=== PATIENT | female | born 2000 | race Asian ===

== ENCOUNTER 2018-11-27 11:00 | Observation (INO) | payer BC, SELFPAY ==
[~2018-11-27] VITALS: Ht 160 cm; Wt 76.2 kg
== END 2018-11-27 13:30 | disposition home or self-care (01) ==
LOC: SPU 11:00
PROVIDERS: ADMIT Obstetrics & Gynecology; ATTEND Obstetrics & Gynecology
DX: O62.9 Abnormality of forces of labor, unspecified (principal); Z3A.38 38 weeks gestation of pregnancy
CPT/HCPCS: G0378

== ENCOUNTER 2018-11-29 21:15 | Inpatient (IN) | payer BC ==
[~2018-11-29] VITALS: Ht 163 cm; Wt 76.2 kg
[2018-11-29] MEDS ORDERED: LR 1,000 ML IV ONE (22:20)
[2018-11-29] MEDS ORDERED: NALBUPHINE HCL 10 MG/ML AMP IVP PRN (22:30)
[2018-11-29 23:08] LABS: BASOPHILS % (AUTO) 0.2 % (0.0-2.0); EOSINOPHILS % (AUTO) 0.6 % (0.0-4.0); HEMOGLOBIN 11.4 g/dL (12.0-16.0); LYMPHOCYTES # (AUTO) 1.4 K/uL (1.0-5.5); LYMPHOCYTES % (AUTO) 18.6 % (20.5-51.5); MEAN CORPUSCULAR HEMOGLOBIN 29 pg (27-31); MEAN CORPUSCULAR HGB CONC 33 % (32-36); MEAN CORPUSCULAR VOLUME 88 fL (79.0-98.0); MONOCYTES # (AUTO) 0.5 K/uL (0.0-1.0); MONOCYTES % (AUTO) 6.1 % (1.7-9.3); NEUTROPHILS # (AUTO) 5.7 K/uL (1.8-7.7); NEUTROPHILS % (AUTO) 74.5 % (40.0-70.0); PLATELET COUNT (AUTO) 198 K/uL (130-430); RED BLOOD CELL COUNT(AUTO) 3.99 MIL/uL (4.2-6.2); RED CELL DISTRIBUTION WIDTH 13.3 % (9.0-15.0); WHITE BLOOD COUNT (AUTO) 7.6 K/uL (4.5-11.0)
[2018-11-30] MEDS: LR 1,000 ML IV SCH ×3 (01:20→07:00)
[2018-11-30 03:15] VITALS: BP_SYST 124
[2018-11-30] MEDS ORDERED: fentaNYL CITRATE/PF 100 MCG/2 ML AMP ONE (06:17)
[2018-11-30] MEDS ORDERED: ROPIVACAINE 0.2% 100 ML ONE ×2 (06:18→15:13)
[2018-11-30] MEDS ORDERED: LR 500 ML IV ONE (08:05)
[2018-11-30] MEDS ORDERED: FENT2mCg/mL-ROPIVA0.2%/NS EPID 150 ML EP SCH (08:15)
[2018-11-30] MEDS ORDERED: OXYTOCIN/0.9 % SODIUM CHLORIDE 1,000 ML IV ONE ×3 (09:01→17:44)
[2018-11-30] MEDS ORDERED: OXYTOCIN 10 UNIT/ML VIAL ONE (09:05)
[2018-11-30] MEDS ORDERED: OXYTOCIN 10 UNIT/ML VIAL IM ONE (09:05)
[2018-11-30] MEDS ORDERED: OXYTOCIN/0.9 % SODIUM CHLORIDE 1,000 ML IV SCH (17:44)
[2018-11-30] MEDS ORDERED: DERMOPLAST SPRAY TP PRN (17:45)
[2018-11-30] MEDS ORDERED: LANOLIN 7 GM OINT. TP PRN (17:45)
[2018-11-30] MEDS ORDERED: MEASLES,MUMPS&RUBELLA VACC/PF 12500 UNIT/0.5 ML VIAL SUBQ PRN (17:45)
[2018-11-30] MEDS ORDERED: RHO(D) IMMUNE GLOBULIN/MALTOSE 1500 UNITS/1.3 ML (WINHRO) IM PRN (17:45)
[2018-11-30] MEDS ORDERED: ANUSOL 1 EA SUPP.RECT (PREPARATION H) RC PRN (17:45)
[2018-11-30] MEDS ORDERED: METHYLERGONOVINE MALEATE 0.2 MG TABLET PO PRN (17:45)
[2018-11-30] MEDS ORDERED: HYDROCORTISONE 0.5%, 28.35 GM TOPICAL CREAM TP PRN (17:45)
[2018-11-30] MEDS ORDERED: DIPH-TET-PERTUS Vaccine 0.5 ML VIAL (ADACEL) I.M. PRN (17:45)
[2018-11-30] MEDS ORDERED: WITCH HAZEL LEAF 1 MED.PAD MED.PAD TP PRN (17:45)
[2018-11-30] MEDS ORDERED: SENNOSIDES/DOCUSATE SODIUM 1 TAB TABLET(SENOKOT-S) PO PRN (17:45)
[2018-11-30] MEDS: IBUPROFEN 600 MG TABLET PO SCH (18:00)
[2018-11-30] MEDS ORDERED: OXYCODONE/ACETAMINOPHEN 5-325 TABLET PO PRN ×2 (19:45)
[2018-11-30] MEDS ORDERED: TEMAZEPAM 15 MG CAPSULE PO PRN (21:00)
[2018-12-01] MEDS: IBUPROFEN 600 MG TABLET PO SCH ×4 (00:15→23:20)
[2018-12-01 08:00] LABS: BASOPHILS % (AUTO) 0.1 % (0.0-2.0); EOSINOPHILS # (AUTO) 0.1 K/uL (0.0-0.4); EOSINOPHILS % (AUTO) 0.5 % (0.0-4.0); HEMOGLOBIN 9.7 g/dL (12.0-16.0); LYMPHOCYTES # (AUTO) 1.5 K/uL (1.0-5.5); LYMPHOCYTES % (AUTO) 12.9 % (20.5-51.5); MEAN CORPUSCULAR HEMOGLOBIN 29 pg (27-31); MEAN CORPUSCULAR HGB CONC 34 % (32-36); MEAN CORPUSCULAR VOLUME 86 fL (79.0-98.0); MONOCYTES # (AUTO) 0.7 K/uL (0.0-1.0); MONOCYTES % (AUTO) 5.5 % (1.7-9.3); NEUTROPHILS # (AUTO) 9.7 K/uL (1.8-7.7); PLATELET COUNT (AUTO) 152 K/uL (130-430); RED BLOOD CELL COUNT(AUTO) 3.37 MIL/uL (4.2-6.2); RED CELL DISTRIBUTION WIDTH 13.7 % (9.0-15.0)
[2018-12-01] MEDS: DOCUSATE SODIUM 100 MG CAPSULE PO PRN (23:20)
[2018-12-02] MEDS: IBUPROFEN 600 MG TABLET PO SCH ×2 (06:08→12:56)
[2018-12-02] MEDS: DOCUSATE SODIUM 100 MG CAPSULE PO PRN (12:56)
== END 2018-12-02 16:10 | disposition home or self-care (01) | DRG 807 ==
LOC: SPU 21:15 → OBSVTOIN 22:00 → SPU 11-30 21:00
PROVIDERS: ADMIT Obstetrics & Gynecology; ATTEND Obstetrics & Gynecology
PROC: 0W8NXZZ Division of Female Perineum, External Approach (ICD-10-PCS; principal; 2018-11-30)
PROC: 10E0XZZ Delivery of Products of Conception, External Approach (ICD-10-PCS; 2018-11-30)
PROC: 3E0R3BZ Introduction of Anesthetic Agent into Spinal Canal, Percutaneous Approach (ICD-10-PCS; 2018-11-30)
PROC: 00HU33Z Insertion of Infusion Device into Spinal Canal, Percutaneous Approach (ICD-10-PCS; 2018-11-30)
DX: O77.0 Labor and delivery complicated by meconium in amniotic fluid (principal); Z37.0 Single live birth; Z3A.39 39 weeks gestation of pregnancy
CPT/HCPCS: 36415; 85025; 86592; 86886; 86900; 86901; G0378; J2590; J2795; J3010; J7120